=== PATIENT | male | born 1965 | race Caucasian/White ===

== ENCOUNTER 2019-01-11 12:10 | Emergency (ER) | payer MEDICAID, MEDICARE ==
[~2019-01-11] VITALS: Ht 185.4 cm; Wt 95.5 kg
[~2019-01-11 12:10] MED LIST: CHOL100010 PO; DULO-31 PO; HYDR12.522 PO; LISI-600 PO; METO50TA7 PO; OMEG500C3 PO
[2019-01-11 14:39] VITALS: BP 127/75
== END 2019-01-11 14:42 | disposition home or self-care (01) ==
LOC: ER 12:11
DX: G89.29 Other chronic pain (principal); M79.602 Pain in left arm; N50.82 Scrotal pain; I10 Essential (primary) hypertension; E11.9 Type 2 diabetes mellitus without complications; F12.90 Cannabis use, unspecified, uncomplicated; Z98.890 Other specified postprocedural states; Z88.1 Allergy status to other antibiotic agents; Z88.0 Allergy status to penicillin; Z88.5 Allergy status to narcotic agent; Z79.899 Other long term (current) drug therapy
CPT/HCPCS: 29125; 99283